=== PATIENT | male | born 1975 | race Caucasian/White ===

== ENCOUNTER 2018-07-19 00:53 | Outpatient (CLI) | payer MEDICAID, SELFPAY ==
--- NOTE | 2018-07-19 13:37 | DI.CT_ITS ---
SYMPTOMS/DIAGNOSIS: RECURRENT LT MAXILLARY SINUSITIS, J01.[address]: CT scan of the sinuses was performed according to protocol. The frontal sinuses are clear. There is opacification of a few ethmoid air cells on the left. The right ethmoid air cells are well pneumatized. There is near complete opacification of the left maxillary sinus. There is a small mucous retention cyst or polyp in the right maxillary sinus. The sphenoid sinuses are clear. The mastoid air cells are well pneumatized. There does appear to be mild thickening of the wall of the left maxillary sinus consistent with chronic sinus disease. The bones are intact. The nasal septum is midline. The turbinates are unremarkable. There is opacification of the left ostiomeatal complex. The right ostiomeatal complex is unremarkable. The orbits and retro-orbital soft tissues are unremarkable. IMPRESSION: Findings of chronic sinusitis on the left. The findings are most marked in the left maxillary sinus.
== END 2018-07-19 01:13 ==
PROVIDERS: PCP General Practice; Visit Provider General Practice
DX: J01.01 Acute recurrent maxillary sinusitis (principal)
CPT/HCPCS: 70486

== ENCOUNTER 2018-08-21 08:16 | Emergency (ER) | payer SELFPAY ==
[2018-08-21 08:22] VITALS: BP 141/91; PULSE 82; RESP 12; TEMP 36.8; O2SAT 96
--- NOTE | 2018-08-21 08:56 | ED.GENADUL_ITS ---
Discharge Plan Disposition Patient Disposition: HOME Condition: Stable Discharge Details Chief Complaint: Orthopedic Clinical Impression: Neuropathy Primary Care Provider: Foreign Hager ED Provider: Cat Villagomez Home Meds and New Rx's Prescriptions: New prednisone 10 mg tablet 10 mg PO DAILY Qty: 42 RF: 0 Continue gabapentin 100 MG capsule 100 - 300 mg PO DIRECTED RF: 0 trazodone 100 MG tablet 100 mg PO HS RF: 0 Discharge Instructions Instructions: Prednisone (By mouth), Carpal Tunnel Syndrome (GEN) Additional Instructions: Please return immediately to the emergency department if you develop any new or worsening symptoms or if you become otherwise concerned. It is extremely important that you make an appointment to be seen by your primary care doctor within the next 1-2 weeks in follow-up for this visit. Referrals: Foreign Hager MD [Primary Care Provider] - Discharge Data Discharge Date/Time-TO BE ENTERED AT DEPARTURE: 08/21/18 11:28 Medical Decision Making Mark Adams is a 43 y/o man without h/o major medical problems who presented to the emergency department c/o transient weakness of his left thumb and persistent paresthesias of the left 3-5th digits after using vibrational tools yesterday. On exam Pt is very well and non-toxic appearing. Motor and sensation of the left hand/digits intact. Suspect carpal tunnel, ulnar neuropathy. Exam/ hx not c/w CVA, vascular etiology, infection, metabolic process. Given sudden onset, plan for xray. Xray okay. Plan for neutral splint, prednisone taper, outpt f/u with PCP. Lengthy discussion with Pt re: RTED precautions and importance of outpt f/u with PCP. Pt is amenable to the plan. Medical Records Medical records reviewed: Yes I reviewed the patient's medical records. Imaging Data Radiologic Study: Attestation: I personally reviewed and interpreted this imaging study as follows: Radiologist's impression: RIGHT WRIST: Three views. No bone or joint abnormality is identified. The soft tissues are unremarkable. IMPRESSION: No acute abnormality. HPI General Mode of arrival: ambulatory . Date/Time Provider Initiated Documentation: 08/21/18 08:56 . Limitations to Documentation: no limitations . Information obtained by: patient, RN notes reviewed and old records reviewed . HPI Narrative: Mark Adams is a 43 y/o man without reported h/o medical problems presenting to the emergency department with hand numbness and weakness. 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 Also uses vibrating tools frequently. Pt reports that yesterday he was working and was using vibrating tools. Pt reports he had sudden onset weakness of his left thumb, and was unable to adduct the digit. Pt reports that later in the day he noticed that his left 3rd, 4th, and 5th digits felt numb, with paresthesias radiating to elbow. He reports that weakness of his thumb resolved last night and is now back to baseline. Tingling in 3-5th digits remains. No other weakness. No trauma. He reports paresthesias in fingers radiating to elbow feels like a burning pain, but he denies any other pain. Has had mild similar symptoms in this hand in the past, but not as severe. No other numbness , tingling, weakness, no speech changes, no fever, no SOB, no cough, no n/v/d, no rash, no swelling. Related Data Home Medications Medication Instructions Recorded Confirmed gabapentin 100 - 300 mg PO DIRECTED 07/22/17 08/21/18 trazodone 100 mg PO HS 03/28/18 08/21/18 prednisone 10 mg PO DAILY #42 tab 08/21/18 Previous Rx's Medication Instructions Recorded prednisone 10 mg PO DAILY #42 tab 08/21/18 Allergies Allergy/AdvReac Type Severity Reaction Status Date / Time No Known Allergies Allergy Unverified 03/28/18 13:16 General Stated Complaint: Orthopedic ELLYN: 4 Review of Systems Review of Systems Constitutional: denies fevers Eyes: denies eye pain ENT: denies facial pain, dental pain, sore throat Cardiovascular: denies chest pain, edema Respiratory: denies SOB, cough GI: denies abdominal pain, vomiting, diarrhea : denies flank pain MSK: denies back pain, neck pain, arthralgias, myalgias Skin: denies rash Neuro: denies headaches, lightheadedness, reports resolved weakness, paresthesias left hand [facility] Social History Smoking/Tobacco Use Status: Current every day Exam Narrative Exam Narrative: Constitutional: well and [id number], pleasant, conversing normally HENT: head atraumatic, normocephalic normal inspection, mucous membranes moist Eyes: conjunctiva normal, sclera normal, pupils 3mm b/l Neck: no stridor, normal ROM, trachea midline Chest: normal inspection Resp: normal work of breathing, LCTAB Cardio: normal rate, normal rhythm, no murmur appreciated, radial pulses intact and symmetric Back: normal inspection, no rash Skin: warm, dry, normal color, no rash Neuro: alert, not altered, grossly non-focal, normal tone, normal strength in ulnar and median nerve distributions of the left hand, normal abduction/ adduction of the left thumb, negative tinnel test, positive phalens test, normal sensation throughout left hand Ext: no edema, no TTP of left digits, hand, wrist, forearm, or elbow, FROM left digits with FDS/FDP intact throughout, normal flex/ext of the wrist, normal ROM of elbow. Psych: normal mood, normal affect, normal behavior Course Vital Signs Temperature 36.8 C 08/21/18 08:22 Pulse 82 08/21/18 08:22 Respiratory Rate 12 08/21/18 08:22 Blood Pressure 141/91 H 08/21/18 08:22 Pulse Oximetry 96 08/21/18 08:22 Temperature 36.8 C 08/21/18 08:22 Temperature Source Temporal Artery Scan 08/21/18 08:22 Pulse 82 08/21/18 08:22 Respiratory Rate 12 08/21/18 08:22 Respiratory Effort 08/21/18 08:52 Blood Pressure 141/91 H 08/21/18 08:22 Pulse Oximetry 96 08/21/18 08:22 Oxygen Delivery Method Room Air 08/21/18 08:22 Oxygen Flow Rate 0 08/21/18 08:22 Pain Level 5 08/21/18 08:22 Comment 08/21/18 08:22
--- NOTE | 2018-08-21 09:19 | DI.RAD_ITS ---
SYMPTOM/DIAGNOSIS: SUDDEN ONSET NUMBNESS, WRIST PAIN RIGHT WRIST: Three views. No bone or joint abnormality is identified. The soft tissues are unremarkable. IMPRESSION: No acute abnormality.
[2018-08-21] MEDS: predniSONE 20 MG TAB PO (11:09)
[2018-08-21] MEDS: Ketorolac 30 MG/ML VIAL IM (11:09)
--- NOTE | 2018-08-21 11:09 | NUR.NOTE ---
Wrist splint with thumb applied as per ED provider instruction Nursing Note:
[2018-08-21 11:27] VITALS: BP 141/91; PULSE 82; RESP 12; TEMP 36.8; O2SAT 96
== END 2018-08-21 11:28 | disposition home or self-care (01) ==
PROVIDERS: Emergency Provider Student in an Organized Health Care Education/Training Program; PCP General Practice
DX: G56.22 Lesion of ulnar nerve, left upper limb (principal); X50.3XXA Overexertion from repetitive movements, initial encounter; Y99.0 Civilian activity done for income or pay
CPT/HCPCS: 29125; 96372; 99283; 73110; J1885; J7512; L3908

== ENCOUNTER 2018-10-18 08:09 | Emergency (ER) | payer MEDICAID, SELFPAY ==
[2018-10-18 08:12] VITALS: BP 161/103; PULSE 101; RESP 18; TEMP 37; O2SAT 98
--- NOTE | 2018-10-18 08:28 | ED.GENADUL_ITS ---
Discharge Plan Disposition Patient Disposition: HOME Condition: Stable Discharge Details Chief Complaint: Nk/Back Pain Clinical Impression: Strain of thoracic spine Primary Care Provider: Foreign Hager ED Provider: Jefry Edwards Home Meds and New Rx's Prescriptions: New cyclobenzaprine 10 mg tablet 10 mg PO TID PRN (Reason: muscle spasm) Qty: 20 RF: 0 No Action gabapentin 100 MG capsule 100 - 300 mg PO DIRECTED RF: 0 trazodone 100 MG tablet 100 mg PO HS RF: 0 Discharge Instructions Instructions: Muscle Strain (ED) Additional Instructions: Continue to rest over the next 2-3 days and slowly advance activity as tolerated. Kzgj-wie-cyizldf pain medication it is recommended that you take 600 mg of ibuprofen along with 650-1000 mg of acetaminophen together every 6 hours as needed for discomfort. You may use the Flexeril as prescribed for any muscle spasms or muscle tension. And if lidocaine patch is effective these are available [id number] in 4% concentration. Just use as directed on packaging. If not improving over the next couple weeks please follow-up with your primary care provider for reassessment and further treatment as needed. Referrals: Foreign Hager MD [Primary Care Provider] - Medical Decision Making Patient presenting to the emergency department for chief complaint of back pain. Patient states that yesterday he sneezed and felt a pulling/popping in his back. He took one hydrocodone that was left over from his sinus surgery that he had recently but today pain is still present and significant. Patient denies any change in bowel or bladder function, fever chills, blunt injury or trauma. Physical exam is remarkable for lower T-spine tenderness along with more significant tenderness to the paraspinal tissue in the same area. No neurological deficits and exam is otherwise unremarkable. I feel that patient has thoracic spine strain otherwise there are no emergent signs of epidural abscess, cauda equina, other emergent back pain findings. Patient was given Toradol, acetaminophen, Flexeril, and lidocaine patch the emergency department and prescribed Flexeril for home use along with ujmg-xop-ccmbrxy pain medication recommendations. Patient to follow-up with primary care provider if not improving over the next 2 weeks. 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 After discussion of diagnosis and plan of care patient has no further needs, questions, or concerns and states clear understanding to return to the emergency department for any worsening symptoms. HPI General Mode of arrival: ambulatory . Date/Time Provider Initiated Documentation: 10/18/18 08:17 . Limitations to Documentation: no limitations . Information obtained by: patient, RN notes reviewed and old records reviewed . History of Present Illness 43 year old M presents to the emergency department with the chief complaint of back pain, described as moderate, with intensity rated at 8. Quality is described as aching and sharp, and is localized to the back. Patient reports no radiation. Patient started experiencing this day(s) (1) and it has been constant. No relieving factors improve symptom(s), Movement worsens symptoms . Patient notes no other symptoms.. Patient did receive the following treatments prior to arrival, none Related Data Home Medications Medication Instructions Recorded Confirmed gabapentin 100 - 300 mg PO DIRECTED 07/22/17 10/18/18 trazodone 100 mg PO HS 03/28/18 10/18/18 cyclobenzaprine 10 mg PO TID PRN #20 tab 10/18/18 Previous Rx's Medication Instructions Recorded cyclobenzaprine 10 mg PO TID PRN #20 tab 10/18/18 Allergies Allergy/AdvReac Type Severity Reaction Status Date / Time No Known Allergies Allergy Unverified 03/28/18 13:16 General Stated Complaint: Nk/Back Pain ELLYN: 4 Review of Systems Constitutional Denies chills and Denies fever(s) Cardiovascular Denies chest pain and Denies dyspnea on exertion Respiratory Denies dyspnea on exertion Gastrointestinal Denies abdominal pain, Denies change in bowel habits, Denies diarrhea, Denies nausea and Denies vomiting Genitourinary Denies difficulty urinating and Denies urinary incontinence Musculoskeletal Reports as per HPI and Reports back pain Neurologic Denies sensory deficit [facility] Social History Smoking/Tobacco Use Status: Current every day Exam Const General: cooperative and no acute distress Orientation: alert, awake and oriented x3 Neck Neck: normal visual inspection, full ROM and no meningeal signs Resp Effort & Inspection: normal respiratory effort Auscultation: clear to auscultation bilaterally Cardio Rate: regular rate Rhythm: regular rhythm Heart Sounds: S1 normal and S2 normal GI Palpation: no hepatosplenomegaly, no aortic enlargement, no masses and no pulsatile masses Back/Spine/Pelvis Thoracic/Lumbar Spine: pain with thoraco-lumbar ROM, paraspinal tenderness (lower t-spine), thoraco-lumbar ROM limited, thoracic spinal tenderness (t10-11) and No lumbar spinal tenderness Neuro General: alert, awake and oriented x3 DTR's: Rt Patellar: 2+, Lt Patellar: 2+, Rt Ankle: 2+ and Lt Ankle: 2+ Extrem Right lower extremity: hip/thigh Details: normal to inspection, knee Details: normal to inspection and lower leg Details: normal to inspection Course Vital Signs Temperature 37.0 C 10/18/18 08:12 Pulse 101 H 10/18/18 08:12 Respiratory Rate 18 10/18/18 08:12 Blood Pressure 161/103 H 10/18/18 08:12 Pulse Oximetry 98 10/18/18 08:12 Temperature 37.0 C 10/18/18 08:12 Temperature Source Tympanic 10/18/18 08:12 Pulse 101 H 10/18/18 08:12 Respiratory Rate 18 10/18/18 08:12 Respiratory Effort 10/18/18 08:12 Blood Pressure 161/103 H 10/18/18 08:12 Blood Pressure Position Sitting 10/18/18 08:12 Pulse Oximetry 98 10/18/18 08:12 Oxygen Delivery Method Room Air 10/18/18 08:12 Oxygen Flow Rate 0 10/18/18 08:12
[2018-10-18] MEDS: Cyclobenzaprine 10 MG TAB PO (08:44)
[2018-10-18] MEDS: Ketorolac 60 MG/2 ML VIAL IM (08:44)
[2018-10-18] MEDS: Acetaminophen 325 MG TAB 650 MG PO (08:44)
[2018-10-18] MEDS: Lidocaine 5% Patch 1 PATCH TP (08:45)
== END 2018-10-18 08:51 | disposition home or self-care (01) ==
PROVIDERS: Emergency Provider Nurse Practitioner Family; PCP General Practice
DX: S29.002A Unspecified injury of muscle and tendon of back wall of thorax, initial encounter (principal); M54.6 Pain in thoracic spine; X50.9XXA Other and unspecified overexertion or strenuous movements or postures, initial encounter
CPT/HCPCS: 96372; 99284; 99283; J1885

== ENCOUNTER 2018-12-27 03:51 | Emergency (ER) | payer MEDICAID, SELFPAY ==
--- NOTE | 2018-12-27 03:52 | W.ED.GENAD ---
Discharge Plan Disposition Patient Disposition: HOME Condition: Stable Discharge Details Chief Complaint: Abd Prob Clinical Impression: Muscle spasm, Abdominal pain Primary Care Provider: Foreign Hager ED Provider: Mansoor Aceves Home Meds and New Rx's Prescriptions: New cyclobenzaprine 10 mg tablet 10 mg PO TID PRN (Reason: muscle spasm) Qty: 20 RF: 0 No Action gabapentin 100 MG capsule 100 - 300 mg PO DIRECTED RF: 0 trazodone 100 MG tablet 100 mg PO HS RF: 0 Discharge Instructions Instructions: Muscle Spasm (ED) Additional Instructions: Based on your symptoms with negative imaging and lab work I suspect you have a back strain or muscle spasm follow up with your primary care provider take 1000mg tylenol and 600mg ibuprofen every 6 hours for pain as needed if pain significantly worsens, you have new symptoms such as fever return to the emergency department Medical Decision Making 43 yo male who denies chronic medical problems comes in with chief complaint of left upper abdominal pain He states he has had left lower back pain for 2 days withuot any injuries. Denies fevers or chills. He states for the last 5 hours or so he has had luq pain so came here. On exam he has clear lungs, no murmurs, soft nondistended abodmen with tenderness without guarding/rebound in the luq. Will obtain labs and imaging to eval for possible splenic pathology, pancreatitis and less likely sbo. HE has no chest pain so doubt acs, heart score is 1 at this time due to his smoking hx. Wells low and perc negative so do not feel PE workup indicated. No tearing back pain and normal vascular exam so doubt dissection. NOrmal lung exam and no pain with deep breaths so doubt ptx at this time labs and imaging shows no acute findings, has no pain on abd exam, only left lower back pain, suspet back strain vs muscle spasm. No saddle anesthesia or other findings to suggest cauda equina. Will havehim f/u with pcp and return precautions given Differential Diagnosis ptx, muscle strain, pancreatitis Imaging Data Radiologic Study: Attestation: I personally reviewed and interpreted this imaging study as follows: Imaging: CT Scan Radiologist's impression: no acute findings Lab Data Lab results reviewed: Yes I reviewed the patient's lab results. ECG Data Attestation: I personally reviewed and interpreted this ECG (s) as follows: Prior ECG tracings: not available for review Interpretation: sinus rhythm, rate of 72, pr 162, no acute ischemic st t wave findings HPI General Mode of arrival: ambulatory. Date/Time Provider Initiated Documentation: 12/27/18 03:52. Limitations to Documentation: no limitations. Information obtained by: patient. History of Present Illness 43 year old M presents to the emergency department with the chief complaint of left upper abdominal pain, described as moderate, with intensity rated at 7. Quality is described as aching and sharp, and is localized to the abdomen. Patient reports no radiation. Patient started experiencing this hour(s) (5) and it has been constant. No relieving factors improve symptom(s), No exacerbating factors reported . Patient notes no other symptoms.. Patient did receive the following treatments prior to arrival, none Related Data Home Medications Medication Instructions Recorded Confirmed gabapentin 100 - 300 mg PO DIRECTED 07/22/17 12/27/18 trazodone 100 mg PO HS 03/28/18 12/27/18 cyclobenzaprine 10 mg PO TID PRN #20 tab 12/27/18 Previous Rx's Medication Instructions Recorded cyclobenzaprine 10 mg PO TID PRN #20 tab 12/27/18 Allergies Allergy/AdvReac Type Severity Reaction Status Date / Time No Known Allergies Allergy Unverified 12/27/18 03:59 General ELLYN: 4 Review of Systems Review of Systems All systems reviewed & are unremarkable except as noted in HPI and below Constitutional Denies chills, Denies fever(s) and Denies weakness ENT Denies change in voice Cardiovascular Denies dyspnea Respiratory Denies cough and Denies dyspnea Gastrointestinal Denies nausea and Denies vomiting Genitourinary Denies dysuria Musculoskeletal Denies joint swelling Integumentary/Breasts Denies rash Neurologic Denies weakness Endocrine Denies heat intolerance [facility] Social History Smoking and Tabacco status: Current every day Exam Const General: no acute distress Orientation: alert HENMT Head: normal to inspection Ears: external ears normal General nose exam: external nose normal Mouth: moist mucous membranes Eyes General: appearance normal, both eyes and all related structures Neck Neck: normal visual inspection Resp Effort & Inspection: normal respiratory effort and able to speak in complete sentences Cardio Rate: regular rate GI Inspection: normal to inspection Skin General skin exam: no rashes or lesions noted Neuro General: alert and oriented x3 Extrem General: normal to inspection Psych Mental Status: mental status grossly normal
[2018-12-27 03:55] VITALS: BP 134/93; PULSE 85; RESP 22; TEMP 36.9; O2SAT 98
--- NOTE | 2018-12-27 04:00 | ED.GENADUL_ITS ---
Discharge Plan Disposition Patient Disposition: HOME Condition: Stable Discharge Details Chief Complaint: Abd Prob Clinical Impression: Muscle spasm, Abdominal pain Primary Care Provider: Foreign Hager ED Provider: Mansoor Aceves Home Meds and New Rx's Prescriptions: New cyclobenzaprine 10 mg tablet 10 mg PO TID PRN (Reason: muscle spasm) Qty: 20 RF: 0 No Action gabapentin 100 MG capsule 100 - 300 mg PO DIRECTED RF: 0 trazodone 100 MG tablet 100 mg PO HS RF: 0 Discharge Instructions Instructions: Muscle Spasm (ED) Additional Instructions: Based on your symptoms with negative imaging and lab work I suspect you have a back strain or muscle spasm follow up with your primary care provider take 1000mg tylenol and 600mg ibuprofen every 6 hours for pain as needed if pain significantly worsens, you have new symptoms such as fever return to the emergency department Medical Decision Making 43 yo male who denies chronic medical problems comes in with chief complaint of left upper abdominal pain He states he has had left lower back pain for 2 days withuot any injuries. Denies fevers or chills. He states for the last 5 hours or so he has had luq pain so came here. On exam he has clear lungs, no murmurs, soft nondistended abodmen with tenderness without guarding/rebound in the luq. Will obtain labs and imaging to eval for possible splenic pathology, pancreatitis and less likely sbo. HE has no chest pain so doubt acs, heart score is 1 at this time due to his smoking hx. Wells low and perc negative so do not feel PE workup indicated. No tearing back pain and normal vascular exam so doubt dissection. NOrmal lung exam and no pain with deep breaths so doubt ptx at this time labs and imaging shows no acute findings, has no pain on abd exam, only left lower back pain, suspet back strain vs muscle spasm. No saddle anesthesia or other findings to suggest cauda equina. Will havehim f/u with pcp and return precautions given Differential Diagnosis ptx, muscle strain, pancreatitis Imaging Data Radiologic Study: Attestation: I personally reviewed and interpreted this imaging study as follows: Imaging: CT Scan Radiologist's impression: no acute findings Lab Data Lab results reviewed: Yes I reviewed the patient's lab results. ECG Data Attestation: I personally reviewed and interpreted this ECG (s) as follows: Prior ECG tracings: not available for review Interpretation: sinus rhythm, rate of 72, pr 162, no acute ischemic st t wave findings HPI General Mode of arrival: ambulatory . Date/Time Provider Initiated Documentation: 12/27/18 03:52 . Limitations to Documentation: no limitations . Information obtained by: patient . History of Present Illness 43 year old M presents to the emergency department with the chief complaint of left upper abdominal pain, described as moderate, with intensity rated at 7. Quality is described as aching and sharp, and is localized to the abdomen. Patient reports no radiation. Patient started experiencing this hour(s) (5) and it has been constant. No relieving factors improve symptom(s), No exacerbating factors reported . Patient notes no other symptoms.. Patient did receive the following treatments prior to arrival, none Related Data Home Medications Medication Instructions Recorded Confirmed gabapentin 100 - 300 mg PO DIRECTED 07/22/17 12/27/18 trazodone 100 mg PO HS 03/28/18 12/27/18 cyclobenzaprine 10 mg PO TID PRN #20 tab 12/27/18 Previous Rx's Medication Instructions Recorded cyclobenzaprine 10 mg PO TID PRN #20 tab 12/27/18 Allergies Allergy/AdvReac Type Severity Reaction Status Date / Time No Known Allergies Allergy Unverified 12/27/18 03:59 General ELLYN: 4 Review of Systems Review of Systems All systems reviewed & are unremarkable except as noted in HPI and below Constitutional Denies chills, Denies fever(s) and Denies weakness ENT Denies change in voice Cardiovascular Denies dyspnea Respiratory Denies cough and Denies dyspnea Gastrointestinal Denies nausea and Denies vomiting Genitourinary Denies dysuria Musculoskeletal Denies joint swelling Integumentary/Breasts Denies rash Neurologic Denies weakness Endocrine Denies heat intolerance [facility] Social History Smoking and Tabacco status: Current every day Exam Const General: no acute distress Orientation: alert HENMT Head: normal to inspection Ears: external ears normal General nose exam: external nose normal Mouth: moist mucous membranes Eyes General: appearance normal, both eyes and all related structures Neck Neck: normal visual inspection Resp Effort & Inspection: normal respiratory effort and able to speak in complete sentences Cardio Rate: regular rate GI Inspection: normal to inspection Skin General skin exam: no rashes or lesions noted Neuro General: alert and oriented x3 Extrem General: normal to inspection Psych Mental Status: mental status grossly normal
[2018-12-27 04:06] LABS: Bilirubin Negative (Negative); Blood Trace-intact (Negative); Clarity Clear; Glucose Negative (Negative); Ketones Negative (Negative); Leukocyte Esterase Negative (Negative); Nitrite Negative (Negative); Specific Gravity 1.025 (1.005-1.025); Urobilinogen 0.2 EU/dL (Up TO 0.2)
[2018-12-27 04:13] LABS: Bacteria Rare HPF (Negative); C & S Indicated? No; Casts Negative LPF (Negative); Crystals Negative HPF (Negative); Epithelial Cells Negative HPF (Negative); Mucus Trace (Negative); RBC 0-2 (0-2); WBC 0-2 HPF (0-5)
[2018-12-27] MEDS: Ketorolac 30 MG/ML VIAL IVP (04:18)
[2018-12-27] MEDS: Normal Saline 1,000 ML 1000 ML IV (04:18)
[2018-12-27 04:27] LABS: Abs Immature Grans 0.04 k/cumm (0.0-0.09); Absolute Basophil Count 0.02 k/cumm (0.0-0.2); Absolute Eosinophil Count 0.21 k/cumm (0.0-0.7); Absolute Lymphocyte Count 3.11 k/cumm (1.2-3.4); Absolute Monocyte Count 0.95 k/cumm (0.11-0.7); Absolute Neutrophil Count 4.45 k/cumm (1.2-6.7); Basophils % 0.2; Eosinophils % 2.4; HCT 46.2 % (40.0-50.0); HGB 15.7 g/dL (13.5-17.5); Immature Grans % 0.5; Lymphocytes % 35.4; Mean Corpuscular Volume 91.1 fL (80-95); Mean Platelet Volume 8.4 fL (8.0-11.0); Monocytes % 10.8; Neutrophils % 50.7; Platelet Count 183 x1000/uL (130-400); RBC 5.07 m/cumm (4.50-6.00); White Blood Cell Count 8.78 k/cumm (4.4-10.8)
[2018-12-27 04:40] LABS: ALT 33 U/L (12-78); AST 21 U/L (15-37); Albumin 3.5 g/dL (3.4-5.0); Alkaline Phosphatase 94 U/L (46-116); Anion Gap 9.8 mmol/L (3-11); BUN 19 mg/dL (7-18); Bilirubin, Direct 0.06 mg/dL (0.00-0.20); Bilirubin, Total 0.2 mg/dL (0.2-1.0); CO2 26.2 mmol/L (21.0-32.0); CREATININE 0.86 mg/dL (0.70-1.30); Calcium 8.5 mg/dL (8.5-10.1); Chloride 102 mmol/L (98-107); Glucose 118 mg/dL (70-100); INR 0.9 (0.9-1.1); Lipase 182 U/L (73-393); PTT Activated 23.3 sec (21.0-31.4); Potassium 3.7 mmol/L (3.5-5.1); Prothrombin Time 9.3 sec (9.3-11.0); Sodium 138 mmol/L (136-145); Total Protein 7.1 g/dL (6.4-8.2)
[2018-12-27] MEDS: Omnipaque 350 MG/ML 100 ML BTL IJ (04:43)
[2018-12-27] MEDS: Normal Saline Flush 10 ML SYR IV (04:44)
[2018-12-27 04:45] VITALS: BP 127/71; PULSE 72; RESP 16; TEMP 36.7; O2SAT 98
[2018-12-27 04:45] LABS: Troponin I < 0.02 ng/mL (0.00-0.06)
--- NOTE | 2018-12-27 04:45 | DI.CT_ITS ---
SYMPTOM/DIAGNOSIS: LT UPPER ABD PAIN, LT FLANK PAIN, H/O KIDNEY STONES ABDOMEN AND PELVIC CT: The study was carried out with intravenous administration of 100 cc's of Omnipaque 350. No abnormality is identified in the lower thorax. The liver appears intact. The gallbladder is normal. There is no evidence of ductal dilatation. The pancreas, spleen, kidneys and adrenals are unremarkable. There is nothing to suggest bowel obstruction. By history, the patient is status post appendectomy. The suboptimally distended bladder is grossly intact. The reproductive organs as visualized appear unremarkable. There is no evidence of free air or fluid fluid in the intraperitoneal space. No acute bony abnormality is seen. There is no evidence of an aortic aneurysm. There is no evidence of an abdominal or pelvic mass or adenopathy. IMPRESSION: No evidence of an acute abdomen.
[2018-12-27] MEDS: MORPHine 10 MG/ML VIAL 4 MG IVP (04:53)
[2018-12-27 06:19] VITALS: BP 114/65; PULSE 67; RESP 20; TEMP 36.8; O2SAT 97
--- NOTE | 2018-12-27 06:21 | DI.VRAD_ITS ---
EXAM: CT Abdomen and Pelvis With Contrast EXAM DATE/TIME: 12/27/2018 3:59 AM CLINICAL HISTORY: 43 years old, male; Pain; Abdominal pain and other: Flank; Localized; Left upper quadrant (luq); Prior surgery; Surgery date: 6+ months; Surgery type: Appendix removed at age 16 TECHNIQUE: Axial computed tomography images of the abdomen and pelvis with intravenous contrast. All CT scans at this facility use at least one of these dose optimization techniques: automated exposure control; mA and/or kV adjustment per patient size (includes targeted exams where dose is matched to clinical indication); or iterative reconstruction. Coronal and sagittal reformatted images were created and reviewed. CONTRAST: Contrast Material: 100 ml of Omnipaque 350; Contrast Route: IV COMPARISON: CT RENAL COLIC WO CONTRAST 07/07/2013 10:05 PM FINDINGS: Lower thorax: Unremarkable. ABDOMEN: Liver: No suspicious lesions. Gallbladder and bile ducts: No acute or concerning findings. Pancreas: Unremarkable. No ductal dilation. Spleen: No suspicious lesions. Adrenals: Unremarkalbe. No suspicious mass. Kidneys and ureters: Unremarkable. No hydro. No suspicious lesions. Stomach and bowel: Unremarkable. No obstruction or inflammatory changes. Appendix: History of an appendectomy. PELVIS: Bladder: Unremarkable as visualized. Reproductive: Unremarkable as visualized. ABDOMEN and PELVIS: Intraperitoneal space: No free air. No significant fluid collection. Bones/joints: No acute fracture. No dislocation. Soft tissues: Unremarkable. Vasculature: Unremarkable. No acute findings Lymph nodes: Unremarkable. IMPRESSION: No acute findings. Dictated and Authenticated by: Martin Cuadra MD. Ordering:ELTON Max MD
== END 2018-12-27 06:54 | disposition home or self-care (01) ==
PROVIDERS: Emergency Provider Emergency Medicine; PCP General Practice
DX: M62.830 Muscle spasm of back (principal); R10.12 Left upper quadrant pain
CPT/HCPCS: 36415; 80053; 80076; 83690; 96361; 96374; 96375; 96376; 99285; 74177; 81003; 81015; 83735; 84484; 85025; 85610; 85730; 99284; J1885; J2270; J3490

== ENCOUNTER 2019-11-21 09:38 | Outpatient (CLI) | payer MEDICAID, SELFPAY | END 2019-11-21 09:58 | PROVIDERS: PCP Family Medicine; Visit Provider Nurse Practitioner Family | DX: Z79.899 Other long term (current) drug therapy (principal); F11.20 Opioid dependence, uncomplicated | CPT/HCPCS: 93005; 93010 ==

== ENCOUNTER 2022-08-16 11:07 | Day surgery (SDC) | payer MEDICAID, SELFPAY ==
[2022-08-16 11:15] VITALS: BP 119/86; PULSE 101; RESP 18; TEMP 36.6; O2SAT 96
[2022-08-16] MEDS: Tropicam./Phenyleph. (1/2.5%) 5 ML BTL OD ×3 (11:35→11:44)
--- NOTE | 2022-08-16 12:05 | W.ANESPRE ---
General Info Date of Service Date Performed: 08/16/22 Height: 6 ft 2 in Weight: 113.4 kg Body Mass Index (BMI): 32.1 Surgical Procedure: Operation Date: 08/16/22 14:40 Proposed Procedure Side Surgeon p Cataract Extraction with IOL Implant Right Adriel Cuello MD Meds Allergies and Home Medications Allergies Allergy/AdvReac Type Severity Reaction Status Date / Time No Known Allergies Allergy Unverified 08/16/22 11:26 Home Medication Medication Instructions Recorded fluoxetine 20 mg capsule 20 mg PO QAM #30 caps 11/21/19 methadone 10 mg/mL oral concentrate 65 mg (6.5 mL) PO DAILY PRN pain 08/12/22 #1,000 mL trazodone 50 mg tablet 50 mg PO DAILY #30 tabs 08/12/22 Current Visit Medications: Current Medications Generic Name Dose Route Start Last Admin Trade Name Freq PRN Reason Stop Dose Admin Acetaminophen 1,000 mg 08/16/22 06:00 Acetaminophen 500 Mg Tab PO Q4H PRN PRN Miscellaneous Medication 0 ml 08/16/22 06:00 Prednisolone 1%, Moxifloxacin 0.5%, Nepafenac 0.1% 5ml Btl OD DIRECTED JAYRO Miscellaneous Medication 0 ml 08/16/22 06:00 08/16/22 11:44 Tropicam./Phenyleph. (1/2.5%) 5 Ml Btl OD 1 drp DIRECTED JAYRO Administration Tetracaine HCl 0 ml 08/16/22 06:00 Tetracaine 0.5% 4 Ml Btl OD DIRECTED JAYRO PFSH Active Problems Active Problems: Problem Status Onset Code Posterior subcapsular age-related cataract, right eye H25.041 Cortical cataract of right eye H26.9 Chronic maxillary sinusitis J32.0 Deviated nasal septum J34.2 Generalized anxiety disorder F41.1 Tobacco use Z72.0 Substance use disorder F19.90 H/O hyperthyroidism Z86.39 Surgical History Surgical History History of placement of ear tubes History of sinus surgery S/P appendectomy S/P T&A (status post tonsillectomy and adenoidectomy) Tobacco Smoking/Tobacco Use Status: Current every day Tobacco Type: cigarettes Passive smoking exposure: Yes Alcohol Alcohol Intake: current Alcohol intake frequency: holidays/special occasions only Alcohol type: beer Substance Use Substance use: Occasionally Substance use type: marijuana Vital Signs and Lab Results Vital Signs Most Recent Vital Signs in EMR: Most Recent Vital Signs Temp Pulse Resp BP Pulse Ox 36.6 C 101 H 18 119/86 96 08/16/22 11:15 08/16/22 11:15 08/16/22 11:15 08/16/22 11:15 08/16/22 11:15 Lab Results Blood Type / Crossmatch: No Data to Display Complete Blood Count: No Data to Display Complete Metabolic Panel: No Data to Display Liver Function Panel: No Data to Display Coagulation Panel: No Data to Display Cardiac Panel: No Data to Display Arterial Blood Gas: No Data to Display Venous Blood Gas: No Data to Display Pancreas Panel: No Data to Display Thyroid Panel: No Data to Display Infectious Disease: No Data to Display Blood Cultures: No Data to Display Toxicology Panel: No Data to Display Anesthesia Assessment and Plan Anesthesia History Personal History: Other (Reports waking up with some aggitation) Family History: No Family History of Anesthesia Complications Exercise Tolerance Exercise Tolerance: Metabolic Equivalents>4 Pertinent Negatives Pertinent Negatives: No Symptoms of GERD, No Major Cardiovascular Symptoms or Complaints, No Major Pulmonary Symptoms or Complaints and No History of CVA/TIA Cardiac & Pulmonary Exam Cardiac Exam: Normal S1/S2 Heart Sounds Pulmonary Exam: Clear Bilateral Breath Sounds Implantable Cardiac Device Does patient have a Pacemaker or an ICD?: No Airway Exam Known Difficult Airway: No Mallampati Class: 2 Mouth Opening: Normal (> 3cm) Thyromental Distance: Greater than 3 cm Neck Range of Motion: Full ROM Neck Circumference: Normal Teeth Condition: Generalized Poor Dentition, Removable Dentures/Plates Upper (left at home) and Removable Dentures/Plates Lower Tooth Numberin. Tooth present 2. Tooth present 3. Tooth present 4. Tooth present 5. Tooth present ASA Classification ASA Score: ASA 2 Emergency Case?: No NPO Status NPO Status: NPO Clears >2 hours, Solids >8 hours Anesthesia Plan Resuscitation Status: Full Code Anesthesia Technique: MAC Anesthesia Airway Planned: Natural Airway Monitors Used: Standard Monitors Preoperative Comments:: Patient reports high anxiety about being awake for case. Would like some sedation, discussed MKO, level of sedation normal for an MKO. Patient agreed to that plan.
[2022-08-16 12:08] VITALS: BMI 32.1
[2022-08-16] MEDS: Tetracaine 0.5% 4 ML BTL OD (12:44)
[2022-08-16] MEDS: Balanced Salt Soln.-PLUS 500 ML BAG (12:45)
[2022-08-16] MEDS: Duovisc Viscoelastic System EACH 1 EACH (12:45)
[2022-08-16] MEDS: Lidocaine 2% Jelly 6 ML SYR (12:46)
[2022-08-16] MEDS: Povidone-Iodine Ophth 30 ML BTL (12:47)
[2022-08-16] MEDS: Trypan Blue 0.06% 0.5 ML SYR (12:47)
[2022-08-16 13:05] VITALS: BP 108/73; PULSE 89; RESP 17; TEMP 36.3; O2SAT 93
--- NOTE | 2022-08-16 13:08 | W.PM.DSUDISC ---
Date of service: 08/16/22 Time of Service: 13:08 Discharge Plan Disposition Patient Disposition: HOME Condition: Good Discharge Details Attending Provider: Adriel Cuello Primary Care Provider: Ingrid Gray Home Meds and New Rx's Prescriptions: No Action fluoxetine 20 mg capsule 20 mg PO QAM Qty: 30 11RF methadone 10 mg/mL concentrate 65 mg PO DAILY MDD 110 PRN (Reason: pain) Qty: 1000 0RF Rx Instructions: per [facility] trazodone 50 mg tablet 50 mg PO DAILY Qty: 30 5RF Discharge Instructions Stand Alone Forms: Post-op Topical Cataract, Alverto Pagan (DSU) Discharge Orders Discharge Orders: Discharge Order (Routine); Ordered 08/16/22 Ordered By: Adriel Cuello DS: Diagnosis Discharge Diagnosis (1) Posterior subcapsular age-related cataract, right eye: Status: Resolved (2) Cortical cataract of right eye: Status: Resolved
--- NOTE | 2022-08-16 13:09 | W.PM.OP ---
Date of service: 08/16/22 Time of Service: 13:09 Operative Note Operative Note DATE OF PROCEDURE: 08/16/22 PRE-OP DIAGNOSIS: Cortical/posterior subcapsular cataract, right eye, dense Poor red reflex, right eye secondary to cataract POST-OP DIAGNOSIS: same PROCEDURE: Cataract extraction using phacoemulsification with intraocular lens implantation, right eye, using capsular staining with Vision Blue SURGEON: Adriel Cuello ANESTHESIA TYPE: Local By Surgeon and MAC Refer to Anesthesia Record PATHOLOGY: none sent COMPLICATIONS: None Patient was transported to: same day Patient's condition: stable Implants: [employer] / [employer] Tecnis [id number] Indications: Progressive visual loss due to cataract, right eye Procedure Description: CATARACT SURGERY OPERATIVE REPORT PREOPERATIVE DIAGNOSIS: 1. Cortical/posterior subcapsular cataract, right eye, dense 2. Poor red reflex secondary to #1 POSTOPERATIVE DIAGNOSIS: Same OPERATION: 1. Cataract extraction using phacoemulsification with posterior chamber intraocular lens implant, right eye. 2. Capsular staining with Vision Blue IOL: IOL Screw Machine Set Up Operator/Model: [employer] / JOSE Tecnis [id number] IOL Power: + 20.0 diopters IOL Serial Number: [id number] Optic Diameter: 6.0mm Haptic/Overall Diameter: 13.0mm PHACO INFO: Humberto Flexcomurion Vision System with OZil and Active Fluidics Cumulative Dispersed Energy (CDE): 5.06 seconds SURGEON: Adriel Cuello MD, AIMEE ANESTHESIA: Monitored Anesthesia Care (MAC), with local sub-tenon's anesthetic infiltration COMPLICATIONS: None SPECIMENS: None INDICATIONS FOR PROCEDURE: The patient is a 47-year-old male with history of progressive decreased vision in his right eye secondary to the development of dense posterior subcapsular cataract with cortical cataract as well. The option of cataract surgery was offered to the patient and he felt he was symptomatic enough that he wished to proceed. PROCEDURE: The correct surgical eye was identified and marked as the right eye and the pupil was dilated in the preoperative area using mydriatics and cycloplegics. The dilated pupil size was 8.0 mm. Oral sedation was administered in the form of an Imprimis MKO Melt (midazolam 3mg/ketamine 25mg/ondansetron 2mg). The patient was brought to the operating room where cardiopulmonary monitoring was instituted and surgical time-out was performed, confirming the correct operative eye and IOL power. Topical anesthesia was administered and ophthalmic povidone-iodine 5% was instilled into the conjunctival fornices. Lidocaine gel was applied to the cornea and the donte-ocular area was prepped with Betadine 10% solution and draped in the usual sterile fashion for intraocular surgery, including an aperture drape. A Tegaderm transparent film dressing was cut in half and used to cover the lashes and lid margins. Care was taken to sequester the lashes and lid margins under the Tegaderm dressing. A lid speculum was placed between the lids of the operative eye and the Humberto LuxOR Revalia operating microscope was maneuvered into position. Amrit scissors were then used to make a conjunctival buttonhole approximately 6mm posterior to the limbus in the inferonasal quadrant. Blunt dissection was carried out to expose bare sclera, and a blunt-tipped sub-tenon?s anesthesia cannula was introduced and passed posteriorly along the globe where non-preserved plain lidocaine was injected into posterior sub-Tenon?s space. A sideport knife was used to make a paracentesis port inferotemporally. Intraocular phenylephrine/lidocaine was injected into the anterior chamber. Air was injected into the anterior chamber, followed by Vision Blue, which was painted over the anterior capsule and then irrigated out with BSS. The anterior chamber was filled with viscoelastic. A keratome knife was used to create a 2-plane near clear corneal tunnel extending approximately 2 mm into clear cornea superior temporally.. A flap was raised on the anterior capsule and capsulorhexis forceps were used to complete a continuous curvilinear capsulorhexis of 5.5 mm. Balanced salt solution was then used to perform cortical cleaving hydrodissection and nuclear hydrodelineation until the lens could be freely rotated within the capsular bag. The lens nucleus was then disassembled and removed within the capsular bag and iris plane using phacoemulsification. Residual cortical material was removed using the I/A handpiece. The posterior capsule was carefully polished to remove as much residual lens epithelial cells as safely possible. Extensive posterior capsular polishing was undertaken. The capsular bag was then inflated and the anterior chamber deepened with viscoelastic. The lens implant described above was inserted into the capsular bag using the JOSE Eklutna Injector. A Kuglen hook was used to dial the IOL into position. Residual viscoelastic was then removed first from posterior to the IOL, then from the anterior chamber using the I/A handpiece. The lens implant was noted to center nicely within the capsular bag. The incisions were stromally hydrated, and the anterior chamber was reformed using BSS. Then 0.5cc of moxifloxacin 1.0mg/ml were injected into the capsular bag and anterior chamber. The incisions were checked with a Weck spear and found to be secure. Several drops of ophthalmic povidone-iodine 5% were then applied to the eye followed by two drops of Imprimis combination prednisolone/moxifloxacin/nepafenac solution. The drapes were removed and a clear plastic protective eye shield was placed over the eye. The patient was then returned to Same Day Surgery in stable condition.
[2022-08-16 13:30] VITALS: BP 126/87; PULSE 80; RESP 18; TEMP 36.2; O2SAT 96
--- NOTE | 2022-08-16 13:55 | W.ANESPOSTOP ---
Postoperative Evaluation Date, Time and Location Date Performed: 08/16/22 Time Performed: 13:55 Patient Location: Day Surgery Unit Vital Signs Most Recent Imported Vital Signs: Most Recent Vital Signs Temp Pulse Resp BP Pulse Ox 36.2 C L 80 18 126/87 96 08/16/22 13:30 08/16/22 13:30 08/16/22 13:30 08/16/22 13:30 08/16/22 13:30 Pain Score Most Recent Pain Score: Most Recent Pain Score Pain Level 0 08/16/22 13:30 Assessment Mental Status: Awake (Alert & Oriented to Patient Baseline) Airway and Respiratory Function: Patent airway with normal (patient baseline) respiratory exam Cardiovascular Function: Hemodynamically Stable Hydration Status: Adequately Hydrated Nausea & Vomiting: No Nausea or Vomiting Pain: Pt. Denies Any Pain Peripheral Nerve Block: Other (Local by Dr. Cuello) Postoperative Comments:: Seen earlier today
== END 2022-08-16 13:35 | disposition home or self-care (01) ==
PROVIDERS: PCP Family Medicine; Visit Provider Ophthalmology
PROC: (CPT 66982; principal; 2022-08-16 14:30)
DX: H25.041 Posterior subcapsular polar age-related cataract, right eye (principal); F17.210 Nicotine dependence, cigarettes, uncomplicated; H26.8 Other specified cataract
CPT/HCPCS: 66982; V2632

== ENCOUNTER 2022-08-30 08:40 | Day surgery (SDC) | payer MEDICAID, SELFPAY ==
[2022-08-30] MEDS: Tropicam./Phenyleph. (1/2.5%) 5 ML BTL OS ×3 (08:55→09:10)
[2022-08-30 09:03] VITALS: BP 139/91; PULSE 97; RESP 18; TEMP 36; O2SAT 100
--- NOTE | 2022-08-30 09:29 | W.ANESPRE ---
General Info Date of Service Date Performed: 08/30/22 Height: 6 ft 1 in Weight: 122.8 kg Body Mass Index (BMI): 35.7 Surgical Procedure: Operation Date: 08/30/22 11:40 Proposed Procedure Side Surgeon p Cataract Extraction with IOL Implant Left Adriel Cuello MD Meds Allergies and Home Medications Allergies Allergy/AdvReac Type Severity Reaction Status Date / Time No Known Allergies Allergy Unverified 08/30/22 08:59 Home Medication Medication Instructions Recorded fluoxetine 20 mg capsule 20 mg PO QAM #30 caps 11/21/19 methadone 10 mg/mL oral concentrate 65 mg (6.5 mL) PO DAILY PRN pain 08/12/22 #1,000 mL trazodone 50 mg tablet 50 mg PO DAILY #30 tabs 08/12/22 Current Visit Medications: Current Medications Generic Name Dose Route Start Last Admin Trade Name Freq PRN Reason Stop Dose Admin Acetaminophen 1,000 mg 08/30/22 06:00 Acetaminophen 500 Mg Tab PO Q4H PRN PRN Miscellaneous Medication 0 ml 08/30/22 06:00 Prednisolone 1%, Moxifloxacin 0.5%, Nepafenac 0.1% 5ml Btl OS DIRECTED JAYRO Miscellaneous Medication 0 ml 08/30/22 06:00 08/30/22 09:10 Tropicam./Phenyleph. (1/2.5%) 5 Ml Btl OS 1 drp DIRECTED JAYRO Administration Tetracaine HCl 0 ml 08/30/22 06:00 Tetracaine 0.5% 4 Ml Btl OS DIRECTED JAYRO PFSH Active Problems Active Problems: Problem Status Onset Code Posterior subcapsular age-related cataract of left eye H25.042 Cortical cataract of left eye H26.9 Posterior subcapsular age-related cataract, right eye H25.041 Cortical cataract of right eye H26.9 Chronic maxillary sinusitis J32.0 Deviated nasal septum J34.2 Generalized anxiety disorder F41.1 Tobacco use Z72.0 Substance use disorder F19.90 H/O hyperthyroidism Z86.39 Surgical History Surgical History History of placement of ear tubes History of sinus surgery S/P appendectomy S/P T&A (status post tonsillectomy and adenoidectomy) Tobacco Smoking/Tobacco Use Status: Current every day Tobacco Type: cigarettes Passive smoking exposure: Yes Alcohol Alcohol Intake: current Alcohol intake frequency: holidays/special occasions only Alcohol type: beer Substance Use Substance use: Occasionally Substance use type: marijuana Vital Signs and Lab Results Vital Signs Most Recent Vital Signs in EMR: Most Recent Vital Signs Temp Pulse Resp BP Pulse Ox 36 C L 97 H 18 139/91 H 100 08/30/22 09:03 08/30/22 09:03 08/30/22 09:03 08/30/22 09:03 08/30/22 09:03 Lab Results Blood Type / Crossmatch: No Data to Display Complete Blood Count: No Data to Display Complete Metabolic Panel: No Data to Display Liver Function Panel: No Data to Display Coagulation Panel: No Data to Display Cardiac Panel: No Data to Display Arterial Blood Gas: No Data to Display Venous Blood Gas: No Data to Display Pancreas Panel: No Data to Display Thyroid Panel: No Data to Display Infectious Disease: No Data to Display Blood Cultures: No Data to Display Toxicology Panel: No Data to Display Anesthesia Assessment and Plan Anesthesia History Personal History: No History of Anesthesia Complications and Other Family History: No Family History of Anesthesia Complications Exercise Tolerance Exercise Tolerance: Metabolic Equivalents>4 Pertinent Negatives Pertinent Negatives: No Symptoms of GERD Cardiac & Pulmonary Exam Cardiac Exam: Normal S1/S2 Heart Sounds Pulmonary Exam: Clear Bilateral Breath Sounds Implantable Cardiac Device Does patient have a Pacemaker or an ICD?: No Airway Exam Known Difficult Airway: No Mallampati Class: 2 Mouth Opening: Normal (> 3cm) Thyromental Distance: Greater than 3 cm Neck Range of Motion: Full ROM Neck Circumference: Normal Teeth Condition: Generalized Poor Dentition, Removable Dentures/Plates Upper (left at home) and Removable Dentures/Plates Lower ASA Classification ASA Score: ASA 2 Emergency Case?: No NPO Status NPO Status: NPO Clears >2 hours, Solids >8 hours Anesthesia Plan Resuscitation Status: Full Code Anesthesia Technique: MAC Anesthesia Airway Planned: Natural Airway Monitors Used: Standard Monitors
[2022-08-30 09:32] VITALS: BMI 35.7
[2022-08-30] MEDS: Povidone-Iodine Ophth 30 ML BTL (10:18)
[2022-08-30] MEDS: Tetracaine 0.5% 4 ML BTL OS (10:18)
[2022-08-30] MEDS: Lidocaine 2% Jelly 6 ML SYR (10:19)
[2022-08-30] MEDS: Lidocaine 1% Pres-Free 5 ML VIAL (10:25)
[2022-08-30] MEDS: Balanced Salt Soln.-PLUS 500 ML BAG (10:30)
[2022-08-30] MEDS: Duovisc Viscoelastic System EACH 1 EACH (10:31)
[2022-08-30] MEDS: Trypan Blue 0.06% 0.5 ML SYR (10:32)
[2022-08-30 10:51] VITALS: BP 114/86; PULSE 94; RESP 16; TEMP 36.3; O2SAT 94
--- NOTE | 2022-08-30 10:53 | W.PM.DSUDISC ---
Date of service: 08/30/22 Time of Service: 10:53 Discharge Plan Disposition Patient Disposition: HOME Condition: Good Discharge Details Attending Provider: Adriel Cuello Primary Care Provider: Ingrid Gray Home Meds and New Rx's Prescriptions: No Action fluoxetine 20 mg capsule 20 mg PO QAM Qty: 30 11RF methadone 10 mg/mL concentrate 65 mg PO DAILY MDD 110 PRN (Reason: pain) Qty: 1000 0RF Rx Instructions: per [facility] trazodone 50 mg tablet 50 mg PO DAILY Qty: 30 5RF Discharge Instructions Stand Alone Forms: Post-op Topical Cataract, Alverto Pagan ([facility]U) Discharge Orders Discharge Orders: Discharge Order (Routine); Ordered 08/30/22 Ordered By: Adriel Cuello DS: Diagnosis Discharge Diagnosis (1) Posterior subcapsular age-related cataract of left eye: Status: Resolved (2) Cortical cataract of left eye: Status: Resolved
--- NOTE | 2022-08-30 10:54 | ROE_ITS ---
Date of service: 08/30/22 Time of Service: 10:54 Operative Note Operative Note DATE OF PROCEDURE: 08/30/22 PRE-OP DIAGNOSIS: Dense cortical/posterior subcapsular cataract, left eye Poor red reflex, left eye secondary to cataract POST-OP DIAGNOSIS: same PROCEDURE: Cataract extraction using phacoemulsification with intraocular lens implant, left eye, using capsular staining with Vision Blue SURGEON: Adriel Cuello ANESTHESIA TYPE: Local By Surgeon and MAC Refer to Anesthesia Record COMPLICATIONS: None Patient was transported to: same day Patient's condition: stable Implants: [employer] Los / [employer] Tecnis Eyhance DIB00 Indications: Progressive decreased vision due to cataract, left eye, with poor red reflex Procedure Description: CATARACT SURGERY OPERATIVE REPORT PREOPERATIVE DIAGNOSIS: 1. Dense cortical/posterior subcapsular cataract, left eye 2. Poor red reflex secondary to #1 POSTOPERATIVE DIAGNOSIS: Same OPERATION: 1. Cataract extraction using phacoemulsification with posterior chamber intraocular lens implant, left eye. 2. Capsular staining with Vision Blue IOL: IOL Evp [employer] Product Leadership/Model: Los & Los / JOSE Tecnis Eyance DIB00 IOL Power: + 20.0 diopters IOL Serial Number: [id number] Optic Diameter: 6.0 mm Haptic/Overall Diameter: 13.0 mm PHACO INFO: Humberto DreamSaver Enterprisesurion Vision System with OZil and Active Fluidics Cumulative Dispersed Energy (CDE): 4.45 seconds SURGEON: Adriel Cuello MD, AIMEE ANESTHESIA: Monitored [facility] Care (MAC), with local sub-tenon's anesthetic infiltration COMPLICATIONS: None SPECIMENS: None INDICATIONS FOR PROCEDURE: Patient is a 47-year-old male with history of diminished visual acuity in his left eye secondary to the development of dense cortical/posterior subcapsular cataract. He has recently undergone cataract surgery in the right eye to remove a dense cortical/posterior subcapsular cataract there as well. He is doing well postoperatively and now presents for cataract surgery in the left eye. PROCEDURE: The correct surgical eye was identified and marked as the left eye and the pupil was dilated in the preoperative area using mydriatics and cycloplegics. The dilated pupil size was 8.0 mm. Oral sedation was administered in the form of an Imprimis MKO Melt (midazolam 3mg/ketamine 25mg/ondansetron 2mg). The patient was brought to the operating room where cardiopulmonary monitoring was instituted and surgical time-out was performed, confirming the correct operative eye and IOL power. Topical anesthesia was administered and ophthalmic povidone-iodine 5% was instilled into the conjunctival fornices. Lidocaine gel was applied to the cornea and the donte-ocular area was prepped with Betadine 10% solution and draped in the usual sterile fashion for intraocular surgery, including an aperture drape. A Tegaderm transparent film dressing was cut in half and used to cover the lashes and lid margins. Care was taken to sequester the lashes and lid margins under the Tegaderm dressing. A lid speculum was placed between the lids of the operative eye and the Humberto LuxOR Revalia operating microscope was maneuvered into position. Amrit scissors were then used to make a conjunctival buttonhole approximately 6mm posterior to the limbus in the inferonasal quadrant. Blunt dissection was carried out to expose bare sclera, and a blunt-tipped sub-tenon?s anesthesia cannula was introduced and passed posteriorly along the globe where non- preserved plain lidocaine was injected into posterior sub-Tenon?s space. A sideport knife was used to make a paracentesis port superiorly/superiortemporally. Intraocular phenylephrine/lidocaine was injected int the anterior chamber.. Air was then injected into the anterior chamber, followed by Vision Blue, which was painted over the anterior capsule and then irrigated out using BSS. The anterior chamber was filled with viscoelastic. A keratome knife was used to create a 2-plane near clear corneal tunnel extending approximately 2 mm into clear cornea temporally. A flap was raised on the anterior capsule and capsulorhexis forceps were used to complete a continuous curvilinear capsulorhexis of 5.5 mm. Balanced salt solution was then used to perform cortical cleaving hydrodissection and nuclear hydrodelineation until the lens could be freely rotated within the capsular bag. The lens nucleus was then disassembled and removed within the capsular bag and iris plane using phacoemulsification. Residual cortical material was removed using the 45-degree angled silicone I/A tip with 0.3mm port. The posterior capsule was carefully polished to remove as much residual lens epithelial cells as safely possible. There was some residual posterior subcapsular plaque in the subincisional area which could not be safely removed. Using a [employer] nucleus manipulator through the side-port attempts were made to dislodge the posterior subcapsular plaque which were unsuccessful. The capsular bag was then inflated and the anterior chamber deepened with viscoelastic. The lens implant described above was inserted into the capsular bag using the Simplicity Injector. A Kuglen hook was used to dial the IOL into position. Residual viscoelastic was then removed first from posterior to the IOL, then from the anterior chamber using the I/A handpiece. The lens implant was noted to center nicely within the capsular bag. The incisions were stromally hydrated, and the anterior chamber was reformed using BSS. Then 0.5cc of moxifloxacin 1.0mg/ml were injected into the capsular bag and anterior chamber. The incisions were checked with a Weck spear and found to be secure. Several drops of ophthalmic povidone-iodine 5% were then applied to the eye followed by two drops of Imprimis combination prednisolone/moxifloxacin/nepafenac solution. The drapes were removed and a clear plastic protective eye shield was placed over the eye. The patient was then returned to Same Day Surgery in stable condition.
[2022-08-30 11:17] VITALS: BP 125/79; PULSE 94; RESP 18; TEMP 36; O2SAT 99
--- NOTE | 2022-08-30 11:27 | W.ANESPOSTOP ---
Postoperative Evaluation Date, Time and Location Date Performed: 08/30/22 Time Performed: 11:00 Patient Location: Day Surgery Unit Vital Signs Most Recent Imported Vital Signs: Most Recent Vital Signs Temp Pulse Resp BP Pulse Ox 36.3 C L 94 H 16 114/86 94 08/30/22 10:51 08/30/22 10:51 08/30/22 10:51 08/30/22 10:51 08/30/22 10:51 Pain Score Most Recent Pain Score: Most Recent Pain Score Pain Level 0 08/30/22 10:51 Assessment Mental Status: Awake (Alert & Oriented to Patient Baseline) Airway and Respiratory Function: Patent airway with normal (patient baseline) respiratory exam Cardiovascular Function: Hemodynamically Stable Hydration Status: Adequately Hydrated Nausea & Vomiting: No Nausea or Vomiting Pain: Pt. Denies Any Pain Peripheral Nerve Block: Patient did not receive a nerve block
== END 2022-08-30 11:21 | disposition home or self-care (01) ==
LOC: SUR 08:41
PROVIDERS: PCP Family Medicine; Visit Provider Ophthalmology
PROC: (CPT 66982; principal; 2022-08-30 11:30)
DX: H25.042 Posterior subcapsular polar age-related cataract, left eye (principal); H26.8 Other specified cataract
CPT/HCPCS: 66982; V2632

== ENCOUNTER 2025-07-18 12:46 | Emergency (ER) | payer MEDICAID, SELFPAY ==
[2025-07-18 12:49] VITALS: BP 188/95; PULSE 97; RESP 18; TEMP 35.8; O2SAT 94
[2025-07-18 14:29] LABS: Abs Immature Grans 0.05 10^3/uL (0.0-0.06); HCT 41.8 % (40.0-50.0); HGB 14.9 g/dL (13.5-17.5); Immature Grans % 0.5 %; MCH 30.7 pg (27.0-33.0); MCHC 35.6 % (32.0-36.0); MCV 86 fL (80-95); MPV 8.7 fL (8.0-11.0); Platelet Count 201 10^3/uL (130-400); RBC 4.85 10^6/uL (4.36-5.78); RDW 12.1 % (11.8-14.1); RDW-SD 38.5 fL; WBC 10.00 10^3/uL (4.4-10.8)
[2025-07-18 15:03] LABS: Acetaminophen < 2 ug/mL (10-30); Salicylate 4.1 mg/dL (<2.8)
[2025-07-18] MEDS: Nicotine 2 MG LOZG SUC (15:17)
[2025-07-18] MEDS: LORazepam 1 MG TAB 2 MG PO (15:41)
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
--- NOTE | 2025-07-18 16:34 | CMSP_ITS ---
Date of service: 07/18/25 Time of Service: 16:34 Care Management Safety Plan Status Status: Voluntary Reason for Wait Reason for Wait: Inpatient Admission Safety Plan Safety Plan: VOLUNTARY FOR INPATIENT PSYCHIATRIC STABILIZATION.? Patient is appropriate in all interactions since arriving at [facility]; Pt has demonstrated appropriate coping and communication skills, has articulated his or her needs and concerns and is fully engaged during staff interactions. Safety plan has been established with patient, and care team, to adhere to patient goals, identify restrictions based on behavioral status, address nutrition, and determine allowed personal belongings, tools for hygiene and personal care. Determine level of activity including ambulation, level of superv ision, visitors, and determine privileges based on behaviors and level of engagement by pt. VOLUNTARY SAFETY PLAN: 1. Will remain on suicide precautions, in paper clothes 2. Will remain in Zone B under direct supervision of one-on-one staff at all times provided by [employer]; JOHANNY, MACHINE LEARNING INTERN acetylene operator. 3. May have paper cups, plates, finger foods as well as a cardboard spoon with which to eat meals. 4. Follow [facility] Management of the Admitted Behavioral Health Patient policy. 5. Shower available in Zone B without restriction. 6. Personal belongings-soft items permitted at RN discretion. 7. Visitors- , Mari is a good support, and may visit, at RN discretion. 8. Activities: soft cart items, hospital tablets (Netflix/Seymour+/music) approved per RN discretion. 9.? Bathroom available in Zone B without restriction. 10. Phone: limited to [facility] cordless phone at RN discretion. Due to VOLUNTARY status, if patient wishes to leave [facility], staff will contact [facility] Crisis Screener ([phone]) and Coal Equipment Operator ([phone]) as soon as possible. In the event of elopement, notify [place] [employer] ([phone]). Patient is currently voluntarily at [facility] and seeking inpatient admission when a bed becomes available. [facility] Frontline House Shorer will continue seeking placement. Please contact the Coal Equipment Operator ([phone]) and [facility] House Shorer ([phone]) for any needed changes in the Safety Plan. Safety plan has been provided to interdepartmental care team.
--- NOTE | 2025-07-18 16:34 | PDOC.CMSAFE ---
Date of service: 07/18/25 Time of Service: 16:34 Care Management Safety Plan Status Status: Voluntary Reason for Wait Reason for Wait: Inpatient Admission Safety Plan Safety Plan: VOLUNTARY FOR INPATIENT PSYCHIATRIC STABILIZATION.? Patient is appropriate in all interactions since arriving at [facility]; Pt has demonstrated appropriate coping and communication skills, has articulated his or her needs and concerns and is fully engaged during staff interactions. Safety plan has been established with patient, and care team, to adhere to patient goals, identify restrictions based on behavioral status, address nutrition, and determine allowed personal belongings, tools for hygiene and personal care. Determine level of activity including ambulation, level of supervision, visitors, and determine privileges based on behaviors and level of engagement by pt. VOLUNTARY SAFETY PLAN: 1. Will remain on suicide precautions, in paper clothes 2. Will remain in Zone B under direct supervision of one-on-one staff at all times provided by [employer]; JOHANNY, GENERATOR MECHANIC order expediter. 3. May have paper cups, plates, finger foods as well as a cardboard spoon with which to eat meals. 4. Follow [facility] Management of the Admitted Behavioral Health Patient policy. 5. Shower available in Zone B without restriction. 6. Personal belongings-soft items permitted at RN discretion. 7. Visitors- , Mari is a good support, and may visit, at RN discretion. 8. Activities: soft cart items, hospital tablets (Netflix/Emi+/music) approved per RN discretion. 9.? Bathroom available in Zone B without restriction. 10. Phone: limited to [facility] cordless phone at RN discretion. Due to VOLUNTARY status, if patient wishes to leave [facility], staff will contact [facility] Crisis Screener ([phone]) and Road Consultant ([phone]) as soon as possible. In the event of elopement, notify [place] [employer] ([phone]). Patient is currently voluntarily at [facility] and seeking inpatient admission when a bed becomes available. [facility] Frontline Truck Driving Instructor will continue seeking placement. Please contact the Road Consultant ([phone]) and [facility] Truck Driving Instructor ([phone]) for any needed changes in the Safety Plan. Safety plan has been provided to interdepartmental care team.
[2025-07-18 17:22] LABS: ALT 69 U/L (16-63); AST 58 U/L (15-37); Albumin 4.0 g/dL (3.4-5.0); Alkaline Phosphatase 100 U/L (46-116); Anion Gap 10.6 mmol/L (3-11); BUN 7 mg/dL (7-18); Bilirubin, Total 0.7 mg/dL (0.2-1.0); CO2 26.4 mmol/L (21.0-32.0); Calcium 8.7 mg/dL (8.5-10.1); Chloride 102 mmol/L (98-107); Estimated GFR 113.66 (mL/min/1.73m2); Glucose 113 mg/dL (74-106); Potassium 3.7 mmol/L (3.5-5.1); Sodium 139 mmol/L (136-145); TSH (W/Ref FT4) 0.57 uIU/mL (0.36-3.74); Total Protein 8.2 g/dL (6.4-8.2)
--- NOTE | 2025-07-18 17:27 | ED.PROG1_ITS ---
Date of service: 07/18/25 Time of Service: 17:00 Psychiatric Border Handoff Update Brief Story: In brief, this is a 50-year-old male patient presenting for suicidal ideation, anxiety, and hypomania, boarding in our emergency department voluntarily. Prior to my taking over their care, the patient was awaiting completion of laboratory workup and telepsych evaluation for medication recommendations. He has been resting comfortably. They have met with the secondary social studies teacher and we are awaiting final dispo. They have not required any additional medications for restraint or sedation. They have been admitted to ED psych observation. I reviewed the patient's laboratory studies, which show no leukocytosis, anemia or thrombocytopenia. Chemistry panel without electrolyte derangement or evidence of kidney dysfunction, does have a mild transaminitis without recent laboratory studies demonstrating same. TSH within normal limits, serum tox negative other than a very slightly elevated salicylate level to 4.1. The patient had significant improvement in his agitation and anxiety with oral Ativan. He met with Dr. Cunningham of the telepsychiatry team, who recommended initiation of BuSpar, 5 mg twice daily. If needed, as needed Ativan can be utilized for severe anxiety. He did receive a dose of Flexeril for some muscle cramping to good effect. The patient was accepted to the [facility] on my shift, Doc to Doc report given to Adriel Rodrigues. No behavioral issues identified during my shift and the patient rested comfortably after receiving his nighttime medications. Transport was scheduled for tomorrow morning, care of this patient was for this reason transferred to the [facility] provider. All paperwork for transfer was filled out by this provider, and discharge summary was completed. Erika Alex MD Status: voluntary Able to leave: would need physician/JESSICA and crisis evaluation prior to leaving Behavioral Concerns: None Potential Disposition: Accepted [facility] Barriers to Disposition: Awaiting transport Medical Concerns: Muscle cramping bilateral lower extremities, improving Mediation Reconciliation performed: Yes Code Status ordered: Yes Diet ordered: Yes Telepsych recommendations (re: meds for agitation, etc): BuSpar, 5 mg twice daily, as needed Ativan for agitation/anxiety Discharge Plan Disposition Patient Disposition: Psychiatric Hospital/Unit Specific Psychiatric Facility: [facility] Condition: Stable Discharge Details Clinical Impression: Suicidal ideation, Anxiety, Transaminitis Primary Care Provider: Unknown,Unknown ED Provider: [place],Erika M Home Meds and New Rx's Prescriptions: No Action fluoxetine 20 mg capsule 20 mg PO QAM Qty: 30 11RF trazodone 50 mg tablet 50 mg PO DAILY Qty: 30 5RF methadone 10 mg/mL concentrate 90 mg PO DAILY MDD 110 Rx Instructions: per BAART Discharge Instructions Instructions: Anxiety, Adult ED Additional Instructions: You were seen in the emergency department today for evaluation of anxiety, decreased sleep and increased energy concerning for ruchi. In our department a full physical examination performed, had laboratory studies that were quite reassuring, and met with a member of our crisis team as well as a telemetry psychiatrist. You were started on a daily medication for your anxiety, and will be transported to the [facility] for ongoing management of your symptoms. You were incidentally noted on your laboratory studies to have a slight elevation in your liver enzymes. These will need to be rechecked by your primary care provider in the next few weeks. Please follow-up with your primary care provider in the next few days to discuss this visit and any symptoms that change, worsen, or persist. Thank you for allowing us to be part of your care.
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
[2025-07-18] MEDS: Cyclobenzaprine 10 MG TAB PO (17:52)
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
[2025-07-18] MEDS: busPIRone 5 MG TAB PO (20:20)
[2025-07-18 20:58] VITALS: BP 126/55; PULSE 64; RESP 15; TEMP 36.6; O2SAT 98
--- NOTE | 2025-07-19 06:59 | ED.PROG1_ITS ---
Date of service: 07/19/25 Time of Service: 06:59 Psychiatric Border Handoff Update Brief Story: Patient here voluntarily for ruchi. Reportedly is going to be transferred to [place] today. No new acute issues. Status: voluntary Mediation Reconciliation performed: Yes Code Status ordered: Yes Diet ordered: Yes Discharge Plan Disposition Patient Disposition: Psychiatric Hospital/Unit Specific Psychiatric Facility: [facility] Condition: Stable Discharge Details Clinical Impression: Suicidal ideation, Anxiety, Transaminitis Primary Care Provider: Unknown,Unknown ED Provider: Mansoor Aceves Home Meds and New Rx's Prescriptions: Continued methadone 10 mg/mL concentrate 90 mg PO DAILY MDD 110 Rx Instructions: per DAVIE No Action fluoxetine 20 mg capsule 20 mg PO QAM Qty: 30 11RF trazodone 50 mg tablet 50 mg PO DAILY Qty: 30 5RF Discharge Instructions Instructions: Anxiety, Adult ED Additional Instructions: You were seen in the emergency department today for evaluation of anxiety, decreased sleep and increased energy concerning for ruchi. In our department a full physical examination performed, had laboratory studies that were quite reassuring, and met with a member of our crisis team as well as a telemetry psychiatrist. You were started on a daily medication for your anxiety, and will be transported to the [facility] for ongoing management of your symptoms. You were incidentally noted on your laboratory studies to have a slight elevation in your liver enzymes. These will need to be rechecked by your primary care provider in the next few weeks. Please follow-up with your primary care provider in the next few days to discuss this visit and any symptoms that change, worsen, or persist. Thank you for allowing us to be part of your care.
[2025-07-19] MEDS: busPIRone 5 MG TAB PO (08:29)
[2025-07-19] MEDS: Methadone Liquid 10 MG/ML 90 MG PO (08:29)
[2025-07-19] MEDS: LORazepam 1 MG TAB 2 MG PO (08:29)
== END 2025-07-19 08:58 ==
PROVIDERS: Student in an Organized Health Care Education/Training Program; Emergency Provider Emergency Medicine
DX: F41.9 Anxiety disorder, unspecified (principal); R45.851 Suicidal ideations; R74.01 Elevation of levels of liver transaminase levels
CPT/HCPCS: 99285 ×2; 00123; 80053; 96127; 80320; 80329; 84443; 85025